=== PATIENT | male | born 1950 | race African-American/Black ===

== ENCOUNTER 2024-03-14 09:39 | Inpatient (IN) | payer MEDICARE, OTHER ==
[~2024-03-14] VITALS: Ht 175.3 cm; Wt 60.8 kg
[2024-03-14 10:14] LABS: BASOPHILS % (AUTO) 0.1 % (0.0-2.0); EOSINOPHILS % (AUTO) 0.2 % (0.0-6.0); HEMATOCRIT 27 % (39-51); HEMOGLOBIN 8.4 g/dL (13.5-17.5); LYMPHOCYTES # (AUTO) 2.6 K/uL (0.8-4.8); LYMPHOCYTES % (AUTO) 28.1 % (20.0-44.0); MEAN CORPUSCULAR HEMOGLOBIN 25 PG (26.0-33.0); MEAN CORPUSCULAR HGB CONC 31 g/dl (31.0-36.0); MEAN CORPUSCULAR VOLUME 80 fL (80-96); MONOCYTES # (AUTO) 1.1 K/uL (0.1-1.30); NEUTROPHILS # (AUTO) 5.6 K/uL (1.8-8.9); NEUTROPHILS % (AUTO) 59.6 % (43.0-81.0); PLATELET COUNT (AUTO) 105 K/uL (150-450); RED BLOOD CELL COUNT(AUTO) 3.42 MIL/uL (4.5-6.0); RED CELL DISTRIBUTION WIDTH 23.2 % (11.5-15.0); WHITE BLOOD COUNT (AUTO) 9.3 K/uL (4.3-11.0)
[2024-03-14 10:26] LABS: CALCIUM, SERUM 7.6 mg/dL (8.5-10.1); CARBON DIOXIDE 26 mmol/L (21-32); CHLORIDE 104 mmol/L (98-107); CREATININE 0.5 mg/dL (0.6-1.3); GLUCOSE 182 mg/dL (74-106); SODIUM SERUM 141 mmol/L (136-145); UREA NITROGEN, BLOOD 6 mg/dL (7-18)
[2024-03-14 10:27] LABS: POTASSIUM 2.6 mmol/L (3.5-5.1)
[2024-03-14] MEDS ORDERED: SENN8.6T19 PO (10:43)
[2024-03-14] MEDS ORDERED: METO25TA6 PO (10:43)
[2024-03-14] MEDS ORDERED: POLY15DR67 EACHEYE (10:43)
[2024-03-14] MEDS ORDERED: AMIN30LI66 PO (10:43)
[2024-03-14] MEDS ORDERED: L. A1TAB10 PO (10:43)
[2024-03-14] MEDS ORDERED: INSU100V7 SQ (10:43)
[2024-03-14] MEDS ORDERED: TAMS-12 PO (10:43)
[2024-03-14] MEDS ORDERED: ZINC220C6 PO (10:43)
[2024-03-14] MEDS ORDERED: OXYC5TAB3 PO (10:43)
[2024-03-14] MEDS ORDERED: ASCO-352 PO (10:43)
[2024-03-14] MEDS ORDERED: MIRT-121 PO (10:43)
[2024-03-14] MEDS ORDERED: ACYC400T19 PO (10:43)
[2024-03-14] MEDS ORDERED: PROC5TAB56 PO (10:43)
[2024-03-14] MEDS ORDERED: LATA7.5D EACHEYE (10:43)
[2024-03-14] MEDS ORDERED: MULT-213 PO (10:43)
[2024-03-14] MEDS ORDERED: APIX5TAB PO (10:43)
[2024-03-14] MEDS ORDERED: CALC-1026 PO (10:43)
[2024-03-14] MEDS ORDERED: ONDA8TAB65 PO (10:43)
[2024-03-14] MEDS ORDERED: ACET-868 PO (10:43)
[2024-03-14] MEDS ORDERED: CALC500T88 PO (10:43)
[2024-03-14] MEDS ORDERED: ATOR40TA PO (10:43)
[2024-03-14] MEDS ORDERED: CALC-494 PO (10:43)
[2024-03-14] MEDS ORDERED: PANT40TA2 PO (10:43)
[2024-03-14] MEDS ORDERED: METF-442 PO (10:43)
[2024-03-14] MEDS ORDERED: DIPH1TAB PO (10:43)
[2024-03-14] MEDS ORDERED: MAGN400T30 PO (10:43)
[2024-03-14] MEDS ORDERED: INSU100V42 SQ (10:43)
[2024-03-14] MEDS ORDERED: ACETAMINOPHEN 325 MG TABLET PO PRN (11:30)
[2024-03-14] MEDS ORDERED: ONDANSETRON HCL/PF 4 MG/2 ML VIAL IVP PRN (11:30)
[2024-03-14] MEDS ORDERED: ALBUTEROL FS 2.5 MG/0.5 ML VIAL.NEB NEB PRN (11:30)
[2024-03-14] MEDS ORDERED: MORPHINE SULFATE INJ 2 MG/ML DISP.SYRIN IV PRN (11:30)
[2024-03-14] MEDS ORDERED: oxyCODONE IR immediate release 5 MG TABLET PO PRN (13:00)
[2024-03-14] MEDS: BLOOD SUGAR DIAGNOSTIC 1 EACH STRIP VI SCH (13:28)
[2024-03-14] MEDS: INSULIN REGULAR, HUMAN 100 UNIT/ML 3 ML VIAL SQ PRN (13:29)
[2024-03-14 13:40] VITALS: BP 98/55; TEMP 97.8; O2SAT 100
[2024-03-14 16:00] VITALS: BP 93/55; TEMP 98.1; O2SAT 100
[2024-03-14] MEDS: POTASSIUM CHLORIDE 20 MEQ TAB.PRT.SR PO ONE (16:47)
[2024-03-14] MEDS: APIXABAN 5 MG TABLET PO SCH (16:48)
[2024-03-14] MEDS: ACYCLOVIR 800 MG TABLET PO SCH (16:48)
[2024-03-14] MEDS: METOPROLOL TARTRATE 25 MG TABLET PO SCH (16:49)
[2024-03-14 20:00] VITALS: BP 90/57; TEMP 98.1; O2SAT 99
[2024-03-14 20:18] VITALS: BP 90/57; TEMP 98.1; O2SAT 99
[2024-03-14 21:37] LABS: CALCIUM, SERUM 7.2 mg/dL (8.5-10.1); CARBON DIOXIDE 29 mmol/L (21-32); CHLORIDE 103 mmol/L (98-107); CREATININE 0.4 mg/dL (0.6-1.3); GLUCOSE 164 mg/dL (74-106); POTASSIUM 2.9 mmol/L (3.5-5.1); SODIUM SERUM 139 mmol/L (136-145); UREA NITROGEN, BLOOD 7 mg/dL (7-18)
[2024-03-14] MEDS: TAMSULOSIN 0.4 MG CAP.SR.24H PO SCH (22:07)
[2024-03-14] MEDS: MIRTAZAPINE 15 MG TABLET PO SCH (22:08)
[2024-03-14] MEDS: ATORVASTATIN 40 MG TABLET PO SCH (22:08)
[2024-03-14] MEDS: LATANOPROST EYE DROP 0.005% 2.5 ML BOTTLE EACHEYE SCH (22:10)
[2024-03-14] MEDS: INSULIN GLARGINE, 100 UNIT/ML CARTRIDGE SQ SCH (22:46)
[2024-03-14] MEDS: *INSULIN REGULAR(HUMULIN R)HUM 100 UNIT/ML VIAL SQ PRN (22:47)
[2024-03-15] VITALS: BP 103/57; TEMP 98.4; O2SAT 99
[2024-03-15 00:33] VITALS: BP 103/57; TEMP 98.2; O2SAT 99
[2024-03-15 05:53] VITALS: BP 99/53; TEMP 98.2; O2SAT 98
[2024-03-15 06:22] LABS: BASOPHILS % (AUTO) 0.1 % (0.0-2.0); EOSINOPHILS # (AUTO) 0.1 K/uL (0.0-0.7); EOSINOPHILS % (AUTO) 0.5 % (0.0-6.0); HEMATOCRIT 25 % (39-51); HEMOGLOBIN 7.7 g/dL (13.5-17.5); LYMPHOCYTES # (AUTO) 2.4 K/uL (0.8-4.8); LYMPHOCYTES % (AUTO) 20.8 % (20.0-44.0); MEAN CORPUSCULAR HEMOGLOBIN 25 PG (26.0-33.0); MEAN CORPUSCULAR HGB CONC 32 g/dl (31.0-36.0); MEAN CORPUSCULAR VOLUME 79 fL (80-96); MONOCYTES # (AUTO) 1.4 K/uL (0.1-1.30); MONOCYTES % (AUTO) 12.2 % (2.0-12.0); NEUTROPHILS # (AUTO) 7.8 K/uL (1.8-8.9); NEUTROPHILS % (AUTO) 66.4 % (43.0-81.0); PLATELET COUNT (AUTO) 118 K/uL (150-450); RED BLOOD CELL COUNT(AUTO) 3.08 MIL/uL (4.5-6.0); RED CELL DISTRIBUTION WIDTH 23.3 % (11.5-15.0); WHITE BLOOD COUNT (AUTO) 11.7 K/uL (4.3-11.0)
[2024-03-15 06:53] LABS: ALANINE AMINOTRANSFERASE 101 U/L (12-78); ALKALINE PHOSPHATASE 587 U/L (46-116); ASPARTATE AMINOTRANSFERASE 107 U/L (15-37); BILIRUBIN,TOTAL 1.5 mg/dL (0.2-1.0); CALCIUM, SERUM 7.6 mg/dL (8.5-10.1); CARBON DIOXIDE 27 mmol/L (21-32); CHLORIDE 107 mmol/L (98-107); CREATININE 0.4 mg/dL (0.6-1.3); GLUCOSE 85 mg/dL (74-106); PHOSPHORUS 2.1 mg/dL (2.5-4.9); POTASSIUM 2.9 mmol/L (3.5-5.1); SODIUM SERUM 143 mmol/L (136-145); TOTAL PROTEIN, SERUM 4.5 g/dL (6.4-8.2); UREA NITROGEN, BLOOD 7 mg/dL (7-18)
[2024-03-15 07:58] LABS: ALBUMIN 1.3 g/dL (3.4-5.0); MAGNESIUM 1.1 mg/dL (1.8-2.4)
[2024-03-15 08:00] VITALS: BP 105/55; TEMP 98.1; O2SAT 96
[2024-03-15] MEDS: POTASSIUM CHLORIDE 20 MEQ TAB.PRT.SR PO ONE (08:13)
[2024-03-15] MEDS: ASCORBIC ACID 500 MG TABLET PO SCH (08:13)
[2024-03-15] MEDS: MAGNESIUM OXIDE 400 MG TABLET PO STA (08:14)
[2024-03-15] MEDS: PANTOPRAZOLE 40 MG TABLET.DR PO SCH (08:14)
[2024-03-15 08:32] LABS: IRON, SERUM 32 ug/dl (50-175); TOTAL IRON BINDING CAPACITY 83 ug/dl (250-450)
[2024-03-15 10:00] LABS: ANISOCYTOSIS 1+; BAND % (MANUAL) 4 % (0.0-5.0); HYPOCHROMASIA 1+; LYMPHOCYTES % (MANUAL) 20 % (16-48); MONOCYTES % (MANUAL) 4 % (0-11.0); MYELOCYTES % 1 % (0-0); NEUTROPHILS % (MANUAL) 71 (42-76); PLATELET ESTIMATE DECREASED; TARGET CELLS 1+
[2024-03-15 10:33] LABS: FERRITIN 5357 ng/mL (8-388)
[2024-03-15] MEDS: Sodium Phosphate 15 MMOL in IV NS 0.9% 245 ML IV SCH (15:53)
[2024-03-15 16:00] VITALS: BP 91/58; TEMP 98.1; O2SAT 97
[2024-03-15] MEDS: METOPROLOL TARTRATE 25 MG TABLET PO SCH (17:51)
[2024-03-15 20:00] VITALS: BP 92/58; TEMP 97.7; O2SAT 100
[2024-03-16] VITALS: BP 92/62; TEMP 97.8; O2SAT 97
[2024-03-16 04:49] VITALS: BP 103/62; TEMP 98.1; O2SAT 97
[2024-03-16 07:00] VITALS: BP 100/53; TEMP 98.1; O2SAT 96
[2024-03-16] MEDS: METOPROLOL TARTRATE 25 MG TABLET PO SCH (09:30)
[2024-03-16 10:14] LABS: ALANINE AMINOTRANSFERASE 82 U/L (12-78); ALKALINE PHOSPHATASE 574 U/L (46-116); ASPARTATE AMINOTRANSFERASE 72 U/L (15-37); BILIRUBIN,TOTAL 0.7 mg/dL (0.2-1.0); CALCIUM, SERUM 7.6 mg/dL (8.5-10.1); CARBON DIOXIDE 28 mmol/L (21-32); CHLORIDE 105 mmol/L (98-107); CREATININE 0.4 mg/dL (0.6-1.3); GLUCOSE 113 mg/dL (74-106); POTASSIUM 3.5 mmol/L (3.5-5.1); SODIUM SERUM 140 mmol/L (136-145); TOTAL PROTEIN, SERUM 4.7 g/dL (6.4-8.2); UREA NITROGEN, BLOOD 6 mg/dL (7-18)
[2024-03-16 10:21] LABS: ALBUMIN 1.4 g/dL (3.4-5.0)
[2024-03-16 12:33] LABS: BASOPHILS # (AUTO) 0.1 K/uL (0.0-0.2); BASOPHILS % (AUTO) 0.4 % (0.0-2.0); EOSINOPHILS # (AUTO) 0.1 K/uL (0.0-0.7); EOSINOPHILS % (AUTO) 0.3 % (0.0-6.0); HEMATOCRIT 26 % (39-51); HEMOGLOBIN 8.1 g/dL (13.5-17.5); LYMPHOCYTES # (AUTO) 4.2 K/uL (0.8-4.8); MEAN CORPUSCULAR HEMOGLOBIN 25 PG (26.0-33.0); MEAN CORPUSCULAR HGB CONC 31 g/dl (31.0-36.0); MEAN CORPUSCULAR VOLUME 81 fL (80-96); MONOCYTES # (AUTO) 2.8 K/uL (0.1-1.30); NEUTROPHILS # (AUTO) 16.2 K/uL (1.8-8.9); NEUTROPHILS % (AUTO) 69.3 % (43.0-81.0); PLATELET COUNT (AUTO) 183 K/uL (150-450); RED BLOOD CELL COUNT(AUTO) 3.22 MIL/uL (4.5-6.0); RED CELL DISTRIBUTION WIDTH 23.8 % (11.5-15.0); WHITE BLOOD COUNT (AUTO) 23.4 K/uL (4.3-11.0)
[2024-03-16] MEDS: SOD FERRIC GLUC 125 MG in IV NS 0.9% 100 ML IV SCH (14:06)
[2024-03-16 16:00] VITALS: BP 107/56; TEMP 98; O2SAT 100
[2024-03-16] MEDS: K PHOS NEUTRAL 250 MG TABLET PO ONE (16:14)
[2024-03-16 19:59] VITALS: BP 98/59; TEMP 98.4; O2SAT 99
[2024-03-16 20:00] VITALS: BP 98/62; TEMP 98.4; O2SAT 99
[2024-03-17 06:36] LABS: CALCIUM, SERUM 7.9 mg/dL (8.5-10.1); CARBON DIOXIDE 25 mmol/L (21-32); CHLORIDE 106 mmol/L (98-107); CREATININE 0.4 mg/dL (0.6-1.3); GLUCOSE 154 mg/dL (74-106); PHOSPHORUS 3.2 mg/dL (2.5-4.9); POTASSIUM 3.1 mmol/L (3.5-5.1); SODIUM SERUM 142 mmol/L (136-145); UREA NITROGEN, BLOOD 5 mg/dL (7-18)
[2024-03-17 08:00] VITALS: BP 100/50; TEMP 97.9; O2SAT 99
[2024-03-17] MEDS ORDERED: IOHEXOL-350 100 ML VIAL IV ONE ×2 (16:08→16:50)
[2024-03-17] MEDS ORDERED: NITROGLYCERIN 0.4 MG/TAB BOTTLE ONE (16:08)
[2024-03-17] MEDS ORDERED: METOPROLOL TARTRATE INJ 5 MG/5 ML AMPUL ONE (16:09)
[2024-03-17] MEDS ORDERED: CT SWABBABLE VALVE TRANS SET 1 EA INFUS.SET MC ONE (16:09)
[2024-03-17] MEDS ORDERED: IV NS 0.9% 250 ML IV ONE (16:09)
[2024-03-17] MEDS: NITROGLYCERIN 0.4 MG/TAB BOTTLE SL ONE (16:55)
[2024-03-17] MEDS ORDERED: METOPROLOL TARTRATE INJ 5 MG/5 ML AMPUL IVP PRN (17:00)
[2024-03-17 20:00] VITALS: BP 149/56; TEMP 98.1; O2SAT 99
[2024-03-17 20:26] VITALS: BP 149/56; TEMP 98.1; O2SAT 95
[2024-03-17] MEDS: POTASSIUM CHLORIDE 20 MEQ TAB.PRT.SR PO SCH (20:34)
[2024-03-18 08:00] VITALS: BP 109/55; TEMP 97.5; O2SAT 96
[2024-03-18 10:53] LABS: BASOPHILS % (AUTO) 0.2 % (0.0-2.0); EOSINOPHILS # (AUTO) 0.1 K/uL (0.0-0.7); EOSINOPHILS % (AUTO) 0.3 % (0.0-6.0); HEMATOCRIT 24 % (39-51); HEMOGLOBIN 7.5 g/dL (13.5-17.5); LYMPHOCYTES % (AUTO) 17.1 % (20.0-44.0); MEAN CORPUSCULAR HEMOGLOBIN 25 PG (26.0-33.0); MEAN CORPUSCULAR HGB CONC 31 g/dl (31.0-36.0); MEAN CORPUSCULAR VOLUME 82 fL (80-96); MONOCYTES # (AUTO) 3.9 K/uL (0.1-1.30); MONOCYTES % (AUTO) 13.4 % (2.0-12.0); NEUTROPHILS # (AUTO) 20.1 K/uL (1.8-8.9); PLATELET COUNT (AUTO) 190 K/uL (150-450); RED BLOOD CELL COUNT(AUTO) 2.95 MIL/uL (4.5-6.0); WHITE BLOOD COUNT (AUTO) 29.2 K/uL (4.3-11.0)
[2024-03-18 11:12] LABS: ALANINE AMINOTRANSFERASE 47 U/L (12-78); ALKALINE PHOSPHATASE 379 U/L (46-116); ASPARTATE AMINOTRANSFERASE 48 U/L (15-37); BILIRUBIN,TOTAL 0.4 mg/dL (0.2-1.0); CALCIUM, SERUM 7.4 mg/dL (8.5-10.1); CARBON DIOXIDE 26 mmol/L (21-32); CHLORIDE 104 mmol/L (98-107); CREATININE 0.5 mg/dL (0.6-1.3); GLUCOSE 160 mg/dL (74-106); PHOSPHORUS 4.1 mg/dL (2.5-4.9); POTASSIUM 3.8 mmol/L (3.5-5.1); SODIUM SERUM 139 mmol/L (136-145); TOTAL PROTEIN, SERUM 4.2 g/dL (6.4-8.2); UREA NITROGEN, BLOOD 6 mg/dL (7-18)
[2024-03-18 11:15] LABS: ALBUMIN 1.3 g/dL (3.4-5.0); MAGNESIUM 1.1 mg/dL (1.8-2.4)
[2024-03-18 12:10] LABS: BAND % (MANUAL) 1 % (0.0-5.0); BASOPHILS % (MANUAL) 0 % (0.0-2.0); EOSINOPHILS % (MANUAL) 0 % (0-4); LYMPHOCYTES % (MANUAL) 16 % (16-48); MONOCYTES % (MANUAL) 4 % (0-11.0); NEUTROPHILS % (MANUAL) 77 (42-76)
[2024-03-18 12:11] LABS: ANISOCYTOSIS 2+; HYPOCHROMASIA 2+; METAMYELOCYTES % 2 % (0-0); PLATELET ESTIMATE ADEQUATE
[2024-03-18] MEDS: PIPERACILLIN /TAZOBACTAM 4.5 G in IV D5W 50 ML IV SCH (12:12)
[2024-03-18] MEDS: Magnesium 1GM/D5W 100ML PREMIX 100 ML IV SCH (14:26)
[2024-03-18 16:00] VITALS: BP 95/55; TEMP 98.6; O2SAT 98
[2024-03-18 17:57] LABS: INR 1.3 (0.91-1.10); PARTIAL THROMBOPLASTIN TIME 29.5 SEC (24.3-34.3); PROTHROMBIN TIME 13.5 SECS (9.2-11.1)
[2024-03-18 20:00] VITALS: BP 108/53; TEMP 98.2; O2SAT 98
[2024-03-19 08:00] VITALS: BP 106/54; TEMP 98.2; O2SAT 94
[2024-03-19] MEDS ORDERED: FLUMAZENIL 0.5 MG VIAL IV PRN (10:30)
[2024-03-19] MEDS ORDERED: NALOXONE PREFILLED SYRINGE 2 MG/2 ML SYRINGE IV PRN (10:30)
[2024-03-19] MEDS ORDERED: MIDAZOLAM HCL 2 MG/2ML VIAL IV PRN (10:30)
[2024-03-19] MEDS ORDERED: FENTANYL PF 250MCG/5ML AMPUL IV PRN (10:30)
[2024-03-19 15:32] LABS: CARBON DIOXIDE 26 mmol/L (21-32); CHLORIDE 108 mmol/L (98-107); CREATININE 0.3 mg/dL (0.6-1.3); GLUCOSE 181 mg/dL (74-106); POTASSIUM 3.6 mmol/L (3.5-5.1); SODIUM SERUM 141 mmol/L (136-145); UREA NITROGEN, BLOOD 3 mg/dL (7-18)
[2024-03-19 16:00] VITALS: BP 106/55; TEMP 97.9; O2SAT 99
[2024-03-19 20:00] VITALS: BP 102/62; TEMP 98.1; O2SAT 98
[2024-03-20 08:00] VITALS: BP 107/70; TEMP 97.7; O2SAT 99
[2024-03-20] MEDS: THERAHONEY GEL 1.5 OZ TUBE TP SCH (10:05)
[2024-03-20] MEDS: MINERAL OIL/PETROL OINT 396 GM JAR TP SCH (10:47)
[2024-03-20] MEDS ORDERED: MICAFUNGIN SODIUM 100 MG in IV NS 0.9% 100 ML IV SCH (11:00)
[2024-03-20 13:07] LABS: BASOPHILS # (AUTO) 0.1 K/uL (0.0-0.2); BASOPHILS % (AUTO) 0.4 % (0.0-2.0); EOSINOPHILS # (AUTO) 0.1 K/uL (0.0-0.7); EOSINOPHILS % (AUTO) 0.2 % (0.0-6.0); HEMATOCRIT 30 % (39-51); HEMOGLOBIN 9.2 g/dL (13.5-17.5); LYMPHOCYTES # (AUTO) 6.3 K/uL (0.8-4.8); LYMPHOCYTES % (AUTO) 18.2 % (20.0-44.0); MEAN CORPUSCULAR HEMOGLOBIN 26 PG (26.0-33.0); MEAN CORPUSCULAR HGB CONC 31 g/dl (31.0-36.0); MEAN CORPUSCULAR VOLUME 83 fL (80-96); MONOCYTES # (AUTO) 3.4 K/uL (0.1-1.30); MONOCYTES % (AUTO) 9.7 % (2.0-12.0); NEUTROPHILS # (AUTO) 24.6 K/uL (1.8-8.9); NEUTROPHILS % (AUTO) 71.5 % (43.0-81.0); PLATELET COUNT (AUTO) 244 K/uL (150-450); RED BLOOD CELL COUNT(AUTO) 3.62 MIL/uL (4.5-6.0); RED CELL DISTRIBUTION WIDTH 23.9 % (11.5-15.0)
[2024-03-20 13:10] LABS: CARBON DIOXIDE 28 mmol/L (21-32); CHLORIDE 106 mmol/L (98-107); CREATININE 0.5 mg/dL (0.6-1.3); GLUCOSE 80 mg/dL (74-106); SODIUM SERUM 139 mmol/L (136-145); UREA NITROGEN, BLOOD 4 mg/dL (7-18)
[2024-03-20 13:15] LABS: CALCIUM, SERUM 7.5 mg/dL (8.5-10.1)
[2024-03-20 13:16] LABS: WHITE BLOOD COUNT (AUTO) 34.4 K/uL (4.3-11.0)
[2024-03-20] MEDS ORDERED: PIPERACILLIN /TAZOBACTAM 4.5 G in IV D5W 100 ML IV SCH (14:00)
[2024-03-20] MEDS: FLUCONAZOLE IN NS,PREMIX 400 MG in PREMIX 1 EA IV SCH (15:19)
[2024-03-20] MEDS: POTASSIUM CHLORIDE 20 MEQ TAB.PRT.SR PO ONE (17:12)
[2024-03-20] MEDS: PIPERACILLIN /TAZOBACTAM 3.375 G in IV D5W 100 ML IV SCH (17:17)
[2024-03-20] MEDS ORDERED: Magnesium 1GM/D5W 100ML PREMIX PIGGYBACK IV ONE (17:30)
[2024-03-20 19:14] LABS: LYMPHOCYTES % (MANUAL) 15 % (16-48); MONOCYTES % (MANUAL) 9 % (0-11.0); NEUTROPHILS % (MANUAL) 76 (42-76)
[2024-03-20 19:15] LABS: ANISOCYTOSIS 2+; HYPOCHROMASIA 1+; PLATELET ESTIMATE ADEQUATE
[2024-03-20] MEDS: Magnesium 1GM/D5W 100ML PREMIX 100 ML IV SCH (19:30)
[2024-03-20 20:00] VITALS: BP 109/49; TEMP 98.4; O2SAT 99
[2024-03-21 06:56] LABS: CALCIUM, SERUM 7.7 mg/dL (8.5-10.1); CARBON DIOXIDE 32 mmol/L (21-32); CHLORIDE 108 mmol/L (98-107); CREATININE 0.4 mg/dL (0.6-1.3); GLUCOSE 66 mg/dL (74-106); MAGNESIUM 1.4 mg/dL (1.8-2.4); SODIUM SERUM 146 mmol/L (136-145); UREA NITROGEN, BLOOD 2 mg/dL (7-18)
[2024-03-21 06:59] LABS: BASOPHILS % (AUTO) 0.1 % (0.0-2.0); EOSINOPHILS # (AUTO) 0.2 K/uL (0.0-0.7); EOSINOPHILS % (AUTO) 0.6 % (0.0-6.0); HEMATOCRIT 26 % (39-51); HEMOGLOBIN 8.1 g/dL (13.5-17.5); MEAN CORPUSCULAR HEMOGLOBIN 25 PG (26.0-33.0); MEAN CORPUSCULAR HGB CONC 31 g/dl (31.0-36.0); MEAN CORPUSCULAR VOLUME 81 fL (80-96); MONOCYTES # (AUTO) 3.8 K/uL (0.1-1.30); NEUTROPHILS # (AUTO) 22.9 K/uL (1.8-8.9); NEUTROPHILS % (AUTO) 65.3 % (43.0-81.0); PLATELET COUNT (AUTO) 271 K/uL (150-450); RED BLOOD CELL COUNT(AUTO) 3.24 MIL/uL (4.5-6.0); RED CELL DISTRIBUTION WIDTH 24.5 % (11.5-15.0)
[2024-03-21 07:49] LABS: POTASSIUM 2.7 mmol/L (3.5-5.1)
[2024-03-21 08:29] LABS: LYMPHOCYTES % (MANUAL) 21 % (16-48); MONOCYTES % (MANUAL) 13 % (0-11.0); NEUTROPHILS % (MANUAL) 66 (42-76)
[2024-03-21 08:30] VITALS: BP 96/56; TEMP 97.7; O2SAT 96
[2024-03-21 08:30] LABS: ANISOCYTOSIS 2+; HYPOCHROMASIA 1+; PLATELET ESTIMATE ADEQUATE
[2024-03-21 09:10] LABS: HEPATITIS B CORE AB, TOTAL Negative (Negative); HEPATITIS B SURFACE AB Reactive (.)
[2024-03-21] MEDS: VANCOMYCIN HCL 1.25 GM in IV D5W 250 ML IV ONE (10:11)
[2024-03-21] MEDS: MAGNESIUM OXIDE 400 MG TABLET PO ONE (10:14)
[2024-03-21] MEDS ORDERED: DIATR MEGLU/DIATRIZOATE SODIUM 30 ML BOTTLE (GASTROGRAPHIN) ONE (12:32)
[2024-03-21] MEDS: POTASSIUM CL. PREMIX PERIPHER. 50 ML IV SCH (14:19)
[2024-03-21 16:00] VITALS: BP 114/67; TEMP 97.5; O2SAT 100
[2024-03-21 17:02] LABS: HIV-1 p24 ANTIGEN NON REACTIVE (NONREACTIVE); HIV-1/2 ANTIBODY NON REACTIVE (NONREACTIVE)
[2024-03-21] MEDS ORDERED: IOHEXOL-300 100 ML VIAL IV ONE (17:43)
[2024-03-21] MEDS ORDERED: CT SWABBABLE VALVE TRANS SET 1 EA INFUS.SET MC ONE (17:43)
[2024-03-21] MEDS ORDERED: IV NS 0.9% 250 ML IV ONE (17:43)
[2024-03-21] MEDS: VANCOMYCIN 1 GM in IV D5W 250 ML IV SCH (17:47)
[2024-03-21 19:22] LABS: OCCULT BLOOD STOOL NEGATIVE (NEGATIVE)
[2024-03-21 19:27] LABS: D-DIMER 3.05 mg/L(FEU (0.17-0.50); INR 1.34 (0.91-1.10); PARTIAL THROMBOPLASTIN TIME 28.6 SEC (24.3-34.3); PROTHROMBIN TIME 13.9 SECS (9.2-11.1)
[2024-03-21 20:00] VITALS: BP 99/58; TEMP 97.9; O2SAT 97
[2024-03-22 07:24] LABS: BASOPHILS % (AUTO) 0.1 % (0.0-2.0); EOSINOPHILS # (AUTO) 0.1 K/uL (0.0-0.7); EOSINOPHILS % (AUTO) 0.2 % (0.0-6.0); HEMATOCRIT 29 % (39-51); HEMOGLOBIN 9.1 g/dL (13.5-17.5); LYMPHOCYTES # (AUTO) 4.3 K/uL (0.8-4.8); LYMPHOCYTES % (AUTO) 14.5 % (20.0-44.0); MEAN CORPUSCULAR HEMOGLOBIN 26 PG (26.0-33.0); MEAN CORPUSCULAR HGB CONC 31 g/dl (31.0-36.0); MEAN CORPUSCULAR VOLUME 82 fL (80-96); MONOCYTES % (AUTO) 10.2 % (2.0-12.0); PLATELET COUNT (AUTO) 283 K/uL (150-450); RED BLOOD CELL COUNT(AUTO) 3.54 MIL/uL (4.5-6.0); RED CELL DISTRIBUTION WIDTH 25.7 % (11.5-15.0); WHITE BLOOD COUNT (AUTO) 29.4 K/uL (4.3-11.0)
[2024-03-22 07:39] LABS: CALCIUM, SERUM 7.7 mg/dL (8.5-10.1); CARBON DIOXIDE 25 mmol/L (21-32); CHLORIDE 108 mmol/L (98-107); CREATININE 0.7 mg/dL (0.6-1.3); GLUCOSE 88 mg/dL (74-106); POTASSIUM 3.2 mmol/L (3.5-5.1); SODIUM SERUM 144 mmol/L (136-145); UREA NITROGEN, BLOOD 4 mg/dL (7-18)
[2024-03-22 08:00] VITALS: BP 100/47; TEMP 98.1; O2SAT 95
[2024-03-22] MEDS: POTASSIUM CHLORIDE 20 MEQ TAB.PRT.SR PO SCH (10:07)
[2024-03-22 16:00] VITALS: BP 142/59; TEMP 98.1; O2SAT 98
[2024-03-23 04:05] VITALS: BP 167/73; TEMP 97.6; O2SAT 100
[2024-03-23 05:00] VITALS: BP 117/52; TEMP 98.2; O2SAT 97
[2024-03-23] MEDS: DEXTROSE 50%-WATER 50 ML DISP.SYRIN IV PRN (06:41)
[2024-03-23 08:00] VITALS: BP 125/59; TEMP 97.6; O2SAT 100
[2024-03-23] MEDS: VANCOMYCIN 750 MG in IV D5W 250 ML IV SCH (10:17)
[2024-03-23 10:37] LABS: BASOPHILS # (AUTO) 0.2 K/uL (0.0-0.2); BASOPHILS % (AUTO) 0.8 % (0.0-2.0); HEMATOCRIT 32 % (39-51); HEMOGLOBIN 9.7 g/dL (13.5-17.5); LYMPHOCYTES # (AUTO) 3.3 K/uL (0.8-4.8); MEAN CORPUSCULAR HEMOGLOBIN 25 PG (26.0-33.0); MEAN CORPUSCULAR HGB CONC 30 g/dl (31.0-36.0); MEAN CORPUSCULAR VOLUME 84 fL (80-96); MONOCYTES # (AUTO) 2.1 K/uL (0.1-1.30); MONOCYTES % (AUTO) 8.4 % (2.0-12.0); NEUTROPHILS # (AUTO) 19.7 K/uL (1.8-8.9); NEUTROPHILS % (AUTO) 77.8 % (43.0-81.0); PLATELET COUNT (AUTO) 294 K/uL (150-450); RED BLOOD CELL COUNT(AUTO) 3.86 MIL/uL (4.5-6.0); RED CELL DISTRIBUTION WIDTH 26.3 % (11.5-15.0); WHITE BLOOD COUNT (AUTO) 25.4 K/uL (4.3-11.0)
[2024-03-23 10:55] LABS: CALCIUM, SERUM 7.6 mg/dL (8.5-10.1); CARBON DIOXIDE 26 mmol/L (21-32); CHLORIDE 111 mmol/L (98-107); GLUCOSE 75 mg/dL (74-106); POTASSIUM 3.4 mmol/L (3.5-5.1); SODIUM SERUM 147 mmol/L (136-145); UREA NITROGEN, BLOOD 5 mg/dL (7-18)
[2024-03-23 10:58] LABS: D-DIMER 2.77 mg/L(FEU (0.17-0.50); INR 1.32 (0.91-1.10); PARTIAL THROMBOPLASTIN TIME 29.6 SEC (24.3-34.3); PROTHROMBIN TIME 13.7 SECS (9.2-11.1)
[2024-03-23] MEDS: POTASSIUM CHLORIDE 10 MEQ/50 ML PREMIXED IVPB FOR PERIPHERAL LINE IV ONE (12:53)
[2024-03-23 16:00] VITALS: BP 136/65; TEMP 97.9; O2SAT 100
[2024-03-23] MEDS ORDERED: LOPERAMIDE HCL UDC(2 MG/10 ML) 2 MG/10 ML UDC PO PRN (21:30)
[2024-03-23] MEDS: LOPERAMIDE HCL (2 MG CAP) 2 MG CAPSULE PO PRN (22:34)
[2024-03-24 07:30] LABS: BASOPHILS # (AUTO) 0.1 K/uL (0.0-0.2); BASOPHILS % (AUTO) 0.4 % (0.0-2.0); EOSINOPHILS # (AUTO) 0.1 K/uL (0.0-0.7); EOSINOPHILS % (AUTO) 0.6 % (0.0-6.0); HEMATOCRIT 28 % (39-51); HEMOGLOBIN 8.3 g/dL (13.5-17.5); LYMPHOCYTES # (AUTO) 3.3 K/uL (0.8-4.8); LYMPHOCYTES % (AUTO) 15.8 % (20.0-44.0); MEAN CORPUSCULAR HEMOGLOBIN 25 PG (26.0-33.0); MEAN CORPUSCULAR HGB CONC 30 g/dl (31.0-36.0); MEAN CORPUSCULAR VOLUME 84 fL (80-96); MONOCYTES # (AUTO) 2.4 K/uL (0.1-1.30); MONOCYTES % (AUTO) 11.5 % (2.0-12.0); NEUTROPHILS # (AUTO) 14.9 K/uL (1.8-8.9); NEUTROPHILS % (AUTO) 71.7 % (43.0-81.0); PLATELET COUNT (AUTO) 296 K/uL (150-450); RED BLOOD CELL COUNT(AUTO) 3.31 MIL/uL (4.5-6.0); RED CELL DISTRIBUTION WIDTH 26.3 % (11.5-15.0); WHITE BLOOD COUNT (AUTO) 20.8 K/uL (4.3-11.0)
[2024-03-24 08:06] LABS: ALANINE AMINOTRANSFERASE 35 U/L (12-78); ALKALINE PHOSPHATASE 232 U/L (46-116); ASPARTATE AMINOTRANSFERASE 47 U/L (15-37); BILIRUBIN,TOTAL 0.3 mg/dL (0.2-1.0); CALCIUM, SERUM 7.4 mg/dL (8.5-10.1); CARBON DIOXIDE 24 mmol/L (21-32); CHLORIDE 115 mmol/L (98-107); GLUCOSE 85 mg/dL (74-106); POTASSIUM 2.9 mmol/L (3.5-5.1); SODIUM SERUM 149 mmol/L (136-145); TOTAL PROTEIN, SERUM 4.1 g/dL (6.4-8.2); UREA NITROGEN, BLOOD 4 mg/dL (7-18)
[2024-03-24 08:06] LABS: FOLIC ACID 5.6 ng/mL (>3.0); IMMUNOGLOBULIN A, SERUM 94 mg/dL (61-437); IMMUNOGLOBULIN G, SERUM 629 mg/dL (603-1613); IMMUNOGLOBULIN M, SERUM 19 mg/dL (15-143)
[2024-03-24 08:30] LABS: ALBUMIN 1.2 g/dL (3.4-5.0)
[2024-03-24 08:32] VITALS: BP 121/54; TEMP 98.9; O2SAT 98
[2024-03-24] MEDS: POTASSIUM CHLORIDE 20 MEQ POWDER PACKET PO SCH (09:22)
[2024-03-24] MEDS: MIDODRINE HCL (5MG) 5 MG TABLET PO SCH (13:20)
[2024-03-24] MEDS: Magnesium 1GM/D5W 100ML PREMIX PIGGYBACK IV ONE (14:26)
[2024-03-24 16:02] VITALS: BP 137/80; TEMP 98.5; O2SAT 97
[2024-03-24] MEDS: PROSOURCE / PROSTAT (PYXIS) 30 ML UDC PO SCH (16:23)
[2024-03-24] MEDS: ARGININE/GLUTAMINE/CALCIUM BMB 1 EACH POWD.PACK PO SCH (16:23)
[2024-03-24 20:00] VITALS: BP 123/51; TEMP 98.6; O2SAT 97
[2024-03-24 22:10] LABS: FREE KAPPA LT CHAINS SERUM 16.4 mg/L (3.3-19.4); FREE LAMBDA LT CHAIN SERUM 11.8 mg/L (5.7-26.3); KAPPA/LAMBDA RATIO SERUM 1.39 (0.26-1.65)
[2024-03-25 06:40] LABS: ALANINE AMINOTRANSFERASE 23 U/L (12-78); ALKALINE PHOSPHATASE 206 U/L (46-116); ASPARTATE AMINOTRANSFERASE 40 U/L (15-37); BILIRUBIN,TOTAL 0.3 mg/dL (0.2-1.0); CALCIUM, SERUM 7.3 mg/dL (8.5-10.1); CARBON DIOXIDE 26 mmol/L (21-32); CHLORIDE 115 mmol/L (98-107); GLUCOSE 64 mg/dL (74-106); SODIUM SERUM 149 mmol/L (136-145); TOTAL PROTEIN, SERUM 3.9 g/dL (6.4-8.2); UREA NITROGEN, BLOOD 7 mg/dL (7-18)
[2024-03-25 06:42] LABS: ALBUMIN 1.1 g/dL (3.4-5.0)
[2024-03-25 06:43] LABS: BASOPHILS # (AUTO) 0.1 K/uL (0.0-0.2); BASOPHILS % (AUTO) 0.3 % (0.0-2.0); EOSINOPHILS # (AUTO) 0.1 K/uL (0.0-0.7); EOSINOPHILS % (AUTO) 0.7 % (0.0-6.0); HEMATOCRIT 26 % (39-51); HEMOGLOBIN 7.9 g/dL (13.5-17.5); LYMPHOCYTES % (AUTO) 23.4 % (20.0-44.0); MEAN CORPUSCULAR HEMOGLOBIN 25 PG (26.0-33.0); MEAN CORPUSCULAR HGB CONC 31 g/dl (31.0-36.0); MEAN CORPUSCULAR VOLUME 81 fL (80-96); MONOCYTES # (AUTO) 2.3 K/uL (0.1-1.30); MONOCYTES % (AUTO) 13.2 % (2.0-12.0); NEUTROPHILS # (AUTO) 10.8 K/uL (1.8-8.9); NEUTROPHILS % (AUTO) 62.4 % (43.0-81.0); PLATELET COUNT (AUTO) 318 K/uL (150-450); RED BLOOD CELL COUNT(AUTO) 3.17 MIL/uL (4.5-6.0); RED CELL DISTRIBUTION WIDTH 26.2 % (11.5-15.0); WHITE BLOOD COUNT (AUTO) 17.2 K/uL (4.3-11.0)
[2024-03-25] MEDS: POTASSIUM CL. PREMIX PERIPHER. 50 ML IV SCH (08:31)
[2024-03-25 08:34] LABS: HYPOCHROMASIA 1+
[2024-03-25 09:13] VITALS: BP 125/56; TEMP 98.1; O2SAT 100
[2024-03-25 16:27] VITALS: BP 128/52; TEMP 98.2; O2SAT 98
[2024-03-25 20:00] VITALS: BP 110/41; TEMP 97.9; O2SAT 98
[2024-03-26 08:00] VITALS: BP 97/50; TEMP 97.9; O2SAT 94
[2024-03-26] MEDS: POTASSIUM CHLORIDE 20 MEQ TAB.PRT.SR PO SCH (08:26)
[2024-03-26 11:36] LABS: BASOPHILS # (AUTO) 0.1 K/uL (0.0-0.2); BASOPHILS % (AUTO) 0.6 % (0.0-2.0); EOSINOPHILS # (AUTO) 0.1 K/uL (0.0-0.7); EOSINOPHILS % (AUTO) 0.9 % (0.0-6.0); HEMATOCRIT 28 % (39-51); HEMOGLOBIN 8.2 g/dL (13.5-17.5); LYMPHOCYTES # (AUTO) 3.6 K/uL (0.8-4.8); LYMPHOCYTES % (AUTO) 21.3 % (20.0-44.0); MEAN CORPUSCULAR HEMOGLOBIN 25 PG (26.0-33.0); MEAN CORPUSCULAR HGB CONC 30 g/dl (31.0-36.0); MEAN CORPUSCULAR VOLUME 86 fL (80-96); MONOCYTES # (AUTO) 1.9 K/uL (0.1-1.30); MONOCYTES % (AUTO) 11.1 % (2.0-12.0); NEUTROPHILS # (AUTO) 11.2 K/uL (1.8-8.9); NEUTROPHILS % (AUTO) 66.1 % (43.0-81.0); PLATELET COUNT (AUTO) 284 K/uL (150-450); RED BLOOD CELL COUNT(AUTO) 3.21 MIL/uL (4.5-6.0); RED CELL DISTRIBUTION WIDTH 26.3 % (11.5-15.0); WHITE BLOOD COUNT (AUTO) 16.9 K/uL (4.3-11.0)
[2024-03-26 11:43] LABS: ALANINE AMINOTRANSFERASE 20 U/L (12-78); ALKALINE PHOSPHATASE 201 U/L (46-116); ASPARTATE AMINOTRANSFERASE 39 U/L (15-37); BILIRUBIN,TOTAL 0.4 mg/dL (0.2-1.0); CALCIUM, SERUM 7.6 mg/dL (8.5-10.1); CARBON DIOXIDE 25 mmol/L (21-32); CHLORIDE 115 mmol/L (98-107); CREATININE 1.1 mg/dL (0.6-1.3); D-DIMER 2.56 mg/L(FEU (0.17-0.50); GLUCOSE 151 mg/dL (74-106); INR 1.48 (0.91-1.10); MAGNESIUM 1.5 mg/dL (1.8-2.4); PARTIAL THROMBOPLASTIN TIME 31.2 SEC (24.3-34.3); PHOSPHORUS 4.2 mg/dL (2.5-4.9); POTASSIUM 4.4 mmol/L (3.5-5.1); PROTHROMBIN TIME 15.3 SECS (9.2-11.1); SODIUM SERUM 148 mmol/L (136-145); TOTAL PROTEIN, SERUM 3.9 g/dL (6.4-8.2); UREA NITROGEN, BLOOD 11 mg/dL (7-18)
[2024-03-26 11:47] LABS: ALBUMIN 1.2 g/dL (3.4-5.0)
[2024-03-26 14:05] LABS: BASOPHILS % (MANUAL) 0 % (0.0-2.0); EOSINOPHILS % (MANUAL) 1 % (0-4); HYPOCHROMASIA 1+; LYMPHOCYTES % (MANUAL) 23 % (16-48); MONOCYTES % (MANUAL) 8 % (0-11.0); NEUTROPHILS % (MANUAL) 68 (42-76); PLATELET ESTIMATE ADEQUATE
[2024-03-26 14:06] LABS: ANISOCYTOSIS 2+
[2024-03-26 16:00] VITALS: BP 120/72; TEMP 98.2; O2SAT 98
[2024-03-26 20:00] VITALS: BP 125/52; TEMP 98.4; O2SAT 98
[2024-03-27] VITALS (9 sets, daily range): BP systolic 125–155; BP diastolic 51–74; TEMP 97.5–98.4; O2SAT 96–100
[2024-03-27 15:18] LABS: BASOPHILS # (AUTO) 0.1 K/uL (0.0-0.2); BASOPHILS % (AUTO) 0.5 % (0.0-2.0); EOSINOPHILS % (AUTO) 0.1 % (0.0-6.0); HEMATOCRIT 28 % (39-51); HEMOGLOBIN 8.4 g/dL (13.5-17.5); LYMPHOCYTES # (AUTO) 7.6 K/uL (0.8-4.8); LYMPHOCYTES % (AUTO) 35.5 % (20.0-44.0); MEAN CORPUSCULAR HEMOGLOBIN 25 PG (26.0-33.0); MEAN CORPUSCULAR HGB CONC 30 g/dl (31.0-36.0); MEAN CORPUSCULAR VOLUME 83 fL (80-96); MONOCYTES # (AUTO) 2.3 K/uL (0.1-1.30); MONOCYTES % (AUTO) 10.6 % (2.0-12.0); NEUTROPHILS # (AUTO) 11.5 K/uL (1.8-8.9); NEUTROPHILS % (AUTO) 53.3 % (43.0-81.0); PLATELET COUNT (AUTO) 290 K/uL (150-450); RED BLOOD CELL COUNT(AUTO) 3.34 MIL/uL (4.5-6.0); RED CELL DISTRIBUTION WIDTH 25.9 % (11.5-15.0); WHITE BLOOD COUNT (AUTO) 21.5 K/uL (4.3-11.0)
[2024-03-27 15:27] LABS: CALCIUM, SERUM 7.8 mg/dL (8.5-10.1); CARBON DIOXIDE 27 mmol/L (21-32); CHLORIDE 114 mmol/L (98-107); CREATININE 1.1 mg/dL (0.6-1.3); GLUCOSE 60 mg/dL (74-106); SODIUM SERUM 146 mmol/L (136-145); UREA NITROGEN, BLOOD 16 mg/dL (7-18)
[2024-03-27 15:34] LABS: D-DIMER 2.32 mg/L(FEU (0.17-0.50); INR 1.42 (0.91-1.10); PARTIAL THROMBOPLASTIN TIME 36.1 SEC (24.3-34.3); PROTHROMBIN TIME 14.7 SECS (9.2-11.1)
[2024-03-27 15:58] LABS: BAND % (MANUAL) 2 % (0.0-5.0); LYMPHOCYTES % (MANUAL) 31 % (16-48); MONOCYTES % (MANUAL) 4 % (0-11.0); NEUTROPHILS % (MANUAL) 63 (42-76); PLATELET ESTIMATE ADEQUATE
[2024-03-27 15:59] LABS: ANISOCYTOSIS 1+; HYPOCHROMASIA 1+
[2024-03-27 16:00] LABS: OVALOCYTES 1+; TARGET CELLS 1+
[2024-03-27] MEDS: ACETAMINOPHEN 325 MG TABLET PO ONE (20:28)
[2024-03-27] MEDS: diphenhydrAMINE HCL 50 MG/ML VIAL IV ONE (20:29)
[2024-03-28 00:15] VITALS: BP 147/64; TEMP 98.3; O2SAT 98
[2024-03-28 00:35] VITALS: BP 147/64
[2024-03-28 14:11] LABS: *SPE A/G RATIO 0.5 (0.7-1.7); *SPE ALBUMIN 1.5 g/dL (2.9-4.4); *SPE ALPHA-1-GLOBULIN 0.4 g/dL (0.0-0.4); *SPE ALPHA-2-GLOBULIN 1.2 g/dL (0.4-1.0); *SPE BETA GLOBULIN 0.7 g/dL (0.7-1.3); *SPE GLOBULIN, TOTAL 2.8 g/dL (2.2-3.9); *SPE M-SPIKE Not Observed g/dL (Not Observed); *SPE PROTEIN TOTAL 4.3 g/dL (6.0-8.5); *SPEGAMMA GLOBULIN 0.5 g/dL (0.4-1.8)
== END 2024-03-28 01:00 | DRG 871 ==
LOC: ER 09:41 → TELE 12:31 → MED 03-16 10:47
PROVIDERS: ADMIT Internal Medicine; ATTEND Internal Medicine
PROC: 0F9430Z Drainage of Gallbladder with Drainage Device, Percutaneous Approach (ICD-10-PCS; principal; 2024-03-18)
PROC: 05HA33Z Insertion of Infusion Device into Left Brachial Vein, Percutaneous Approach (ICD-10-PCS; 2024-03-20)
PROC: 30233M1 Transfusion of Nonautologous Plasma Cryoprecipitate into Peripheral Vein, Percutaneous Approach (ICD-10-PCS; 2024-03-27)
DX: A41.9 Sepsis, unspecified organism (principal); E43 Unspecified severe protein-calorie malnutrition; C85.10 Unspecified B-cell lymphoma, unspecified site; I44.2 Atrioventricular block, complete; K80.01 Calculus of gallbladder with acute cholecystitis with obstruction; Z68.1 Body mass index [BMI] 19.9 or less, adult; I50.32 Chronic diastolic (congestive) heart failure; C85.18 Unspecified B-cell lymphoma, lymph nodes of multiple sites; J91.0 Malignant pleural effusion; J96.10 Chronic respiratory failure, unspecified whether with hypoxia or hypercapnia; R18.8 Other ascites; E87.0 Hyperosmolality and hypernatremia; I31.39 Other pericardial effusion (noninflammatory); J93.9 Pneumothorax, unspecified; I48.91 Unspecified atrial fibrillation; Z95.0 Presence of cardiac pacemaker; Z79.899 Other long term (current) drug therapy; K82.A1 Gangrene of gallbladder in cholecystitis; E88.09 Other disorders of plasma-protein metabolism, not elsewhere classified; D64.9 Anemia, unspecified; E78.5 Hyperlipidemia, unspecified; Z79.4 Long term (current) use of insulin; Z79.84 Long term (current) use of oral hypoglycemic drugs; Z53.20 Procedure and treatment not carried out because of patient's decision for unspecified reasons; I11.0 Hypertensive heart disease with heart failure; Z93.8 Other artificial opening status; Z79.01 Long term (current) use of anticoagulants; Z86.718 Personal history of other venous thrombosis and embolism; Z87.891 Personal history of nicotine dependence; I25.10 Atherosclerotic heart disease of native coronary artery without angina pectoris; E83.51 Hypocalcemia
CPT/HCPCS: 36415; 71045-TC; 71260-TC; 75574; 75989-TC; 76700-TC; 78226; 80048-TC; 80053-TC; 80202-TC; 82272-TC; 82607-TC; 82728-TC; 82784; 82962-TC; 83540-TC; 83615-TC; 83735-TC; 83880; 84100-TC; 84155; 84165; 84484-TC; 85025-TC; 85396; 85610-TC; 85730-TC; 86334; 86704; 86706; 86803; 86850-TC; 87040-TC; 87081-TC; 87340; 87806; 93307-TC; 93970-TC; 93971-TC; 97110-TC; 97116-TC; 97530-TC; A4216; A4223; A9537; A9563; G0378; J1200; J1450; J1815; J2250; J2543; J2916; J3010; J3370; J3371; J3475; J3480; J3490; J7030; J7040; J7050; J7060; P9012; Q9963; Q9967